=== PATIENT | male | born 1990 | race Caucasian/White ===

== ENCOUNTER 2019-03-30 09:20 | Inpatient (IN) | payer OTHER ==
[2019-03-30 12:46] VITALS: BMI 27.0
--- NOTE | 2019-03-30 14:36 | HP ---
"COWS - Scale Resting Pulse: 1= [place] 81-100 Sweatin= Chills/Flushing Restless Observation: 1= Difficult to Sit Still Pupil Size: 1= Pupils >than Normal Bone or Joint Aches: 1= Mild Discomfort Runny Nose/ Eye Tearin= None GI Upset > 30mins: 1= Stomach Cramp Tremor Observation: 1= Tremor [place], Not Seen Yawning Observation: 0= None Anxiety or Irritability: 2=Irritable/Anxious Goose Flesh Skin: 0=Smooth Skin COWS Score: 9 CIWA Score - Admission Criteria OASAS Guidelines: Admission for Medically Managed Detox: Requires at least one of the followin. CIWA greater than 12 2. Seizures within the past 24 hours 3. Delirium tremens within the past 24 hours 4. Hallucinations within the past 24 hours 5. Acute intervention needed for co occurring medical disorder 6. Acute intervention needed for co occurring psychiatric disorder 7. Severe withdrawal that cannot be handled at a lower level of care (continued vomiting, continued diarrhea, abnormal vital signs) requiring intravenous medication and/or fluids 8. Admitting History and Physical - Smoking History Smoking history: Current every day smoker Have you smoked in the past 12 months: No Aproximately how many cigarettes per day: 10 Admission ROS [facility] Allergies/Adverse Reactions: Allergies Allergy/AdvReac Type Severity Reaction Status Date / Time No Known Allergies Allergy Verified 03/30/19 12:47 History of Present Illness: 28 y.o. male requesting detox from heroin , first age of use 17 had rx for Percocet after hand frx , gradually increased use of Percocet , switched to heroin since age 19 denies iv use , denies OD , does not have Narcan @ home . latest heroin use Wednesday per pt , buprenorophine 5 am today . Went to Methadone clinic [facility] this morning and was referred to this facility for detox prior to entering Methadone clinic program. Per pt test results from utox not available @ [facility] until Wednesday thus pt was not accepted into the program for immediate dosing, pt reports he has been selling his Suboxone rx in order to fund his heroin use , keeps a few strips and takes pieces of it tostop withdrawal symptoms . Average daily use of heroin 1-1.5 bundles/day . Prior detox 2 years ago , has been in [facility] since without significant periods of sobriety . cocaine use : states in the past 1 gr every 2 days , latest use 3-4 weeks ago . crack cocaine 1 gr , latest use 3 weeks ago etoh - denies denies other illicits has rx Valium for anxiety . consent signed for prescriber notification . pmhx ; denies pshx : left hand psych ; anxiety , depression, denies SI / Hi shx : unemployed .l This report was requested by: Carla Mcarthur | Reference #: [id number] Others' Prescriptions Patient Name: Cheo Flores Date: 1990 Address: [address] [place] [address] Sex: Male Rx Written Rx Dispensed Drug Quantity Days Supply Prescriber Name 03/14/2019 03/14/2019 buprenorphine-naloxone 12-3 mg sl film 30 30 Shay Villa MD 03/14/2019 03/14/2019 diazepam 5 mg tablet 20 10 Shay Villa MD 02/10/2019 02/10/2019 diazepam 5 mg tablet 20 10 Shay Villa MD 02/10/2019 02/10/2019 buprenorphine-naloxone 12-3 mg sl film 30 30 Shay Villa MD 01/13/2019 01/13/2019 diazepam 5 mg tablet 20 10 Shay Villa MD 01/13/2019 01/13/2019 buprenorphine-naloxone 12-3 mg sl film 30 30 Shay Villa MD 12/15/2018 12/15/2018 diazepam 5 mg tablet 20 10 Shay Villa MD 12/15/2018 12/15/2018 buprenorphine-naloxone 12-3 mg sl film 30 30 Shay Villa MD 11/16/2018 11/16/2018 diazepam 5 mg tablet 20 10 Shay Villa MD 11/16/2018 11/16/2018 buprenorphine-naloxone 12-3 mg sl film 30 30 Shay Villa MD 10/14/2018 10/16/2018 buprenorphine-naloxone 12-3 mg sl film 30 30 Shay Villa MD 10/14/2018 10/14/2018 diazepam 5 mg tablet 20 10 Shay Villa MD 09/13/2018 09/15/2018 buprenorphine-naloxone 12-3 mg sl film 30 30 Shay Villa MD 09/13/2018 09/13/2018 diazepam 5 mg tablet 20 10 Shay Villa MD 08/18/2018 08/18/2018 buprenorphine-naloxone 12-3 mg sl film 30 30 Shay Villa MD Patient Name: Cheo Flores Date: 1990 Address: [address] [place] [address] Sex: Male Rx Written Rx Dispensed Drug Quantity Days Supply Prescriber Name 08/17/2018 08/17/2018 diazepam 5 mg tablet 20 10 Sahy Villa MD 07/20/2018 07/21/2018 buprenorphine-naloxone 12-3 mg sl film 30 30 Shay Villa MD 07/20/2018 07/20/2018 diazepam 5 mg tablet 20 10 Shay Villa MD 06/22/2018 06/22/2018 diazepam 5 mg tablet 20 10 Shay Villa MD 06/22/2018 06/22/2018 suboxone 12 mg-3 mg sl film 30 30 Shay Villa MD 05/18/2018 05/23/2018 suboxone 12 mg-3 mg sl film 30 30 Shay Villa MD 05/18/2018 05/18/2018 diazepam 5 mg tablet 20 10 Shay Villa MD 04/20/2018 04/23/2018 suboxone 12 mg-3 mg sl film 30 30 Shay Villa MD 04/20/2018 04/20/2018 diazepam 5 mg tablet 20 10 Shay Villa MD Exam Limitations: Clinical Condition - Ebola screening Have you traveled outside of the country in the last 21 days: No Have you had contact with anyone from an Ebola affected area: No - Review of Systems Constitutional: Loss of Appetite EENT: reports: Other (contacts- myopia , denies dysphagia) Respiratory: reports: No Symptoms reported Cardiac: reports: No Symptoms Reported GI: reports: Constipated : reports: No Symptoms Reported Musculoskeletal: reports: Back Pain, Muscle Pain (body aches) Integumentary: reports: No Symptoms Reported Neuro: reports: No Symptoms reported Endocrine: reports: No Symptoms Reported Hematology: reports: No Symptoms Reported Psychiatric: reports: Orientated x3, Agitated, Anxious Patient History - Patient Medical History Hx Asthma: No Hx Chronic Obstructive Pulmonary Disease (COPD): No Hx Cardiac Disorders: No Hx Hypertension: No Hx Seizures: No Hx Diabetes: No Hx Gastrointestinal Disorders: No Hx Genitourinary Disorders: No Hx Sexually Transmitted Disorders: No Hx Renal Disease (ESRD): No Hx Depression: Yes Hx Suicide Attempt: No Hx Schizophrenia: No - Patient Surgical History Past Surgical History: Yes Hx Orthopedic Surgery: Yes (L hand sx for fx at age 15 yrs old.) - PPD History Previous Implant?: Yes Documented Results: Negative w/o proof Implanted On Prior [facility] Admission?: No - Smoking Cessation Smoking history: Current every day smoker Have you smoked in the past 12 months: No Aproximately how many cigarettes per day: 10 Hx Chewing Tobacco Use: No Initiated information on smoking cessation: Yes 'Breaking Loose' booklet given: 03/30/19 - Substances abused Heroin Substance route: Inhalation Frequency: Daily Amount used: 10 bags Age of first use: 19 Date of last use: 03/26/19 Diazepam Substance route: Oral Frequency: Daily Amount used: 10-15mg Age of first use: 17 Date of last use: 03/30/19 Buprenorphine Substance route: Oral Frequency: 1-2 times per week Amount used: 1/4 of 12mg strip Age of first use: 23 Date of last use: 03/30/19 Admission Physical Exam S - Vital Signs Vital Signs: Vital Signs - 24 hr 03/30/19 12:41 Temperature 97.9 F Pulse Rate 87 Respiratory 18 Rate Blood Pressure 136/81 - Physical General Appearance: Yes: Disheveled, Mild Distress, Moderate Distress, Anxious HEENTM: Yes: EOMI, Hearing grossly Normal, Normocephalic, Normal Voice Respiratory: Yes: Chest Non-Tender, Lungs Clear, Normal Breath Sounds, No Respiratory Distress, No Accessory Muscle Use Neck: Yes: No masses,lesions,Nodules, Trachea in good position Cardiology: Yes: Regular Rhythm, Regular Rate, S1, S2 Abdominal: Yes: Non Tender, Soft Musculoskeletal: Yes: Gait Steady, Back pain Extremities: Yes: Normal Inspection, Normal Range of Motion, Non-Tender Neurological: Yes: Fully Oriented, Alert, Motor Strength 5/5, Depressed Affect Integumentary: Yes: Warm - Diagnostic (1) Opioid dependence Current Visit: Yes Status: Chronic Qualifiers: Substance use status: uncomplicated Qualified Code(s): F11.20 - Opioid dependence, uncomplicated (2) Sedative dependence with current use Current Visit: Yes Status: Acute (3) Cocaine abuse, episodic use Current Visit: Yes Status: Chronic (4) Nicotine dependence Current Visit: Yes Status: Chronic Qualifiers: Nicotine product type: cigarettes Breathalyzer - Breathalyzer Breathalyzer: 0 Urine Drug Screen - Test Device Lot number: [id number] Expiration date: 10/05/20 - Control Is test valid?: Yes - Results Drug screen NEGATIVE: No Urine drug screen results: MOP-Opiates, BZO-Benzodiazepines, BUP-Suboxone Inpatient Rehab Admission - Rehab Decision to Admit Inpatient rehab admission?: No"
[2019-03-30] MEDS ORDERED: MAGNESIUM CITRATE 300 ML BOTTLE PO PRN (14:51)
[2019-03-30] MEDS ORDERED: MAG HYDROX/AL HYDROX/SIMETH 30 ML UNIT-DOSE CUP PO PRN (14:51)
[2019-03-30] MEDS ORDERED: ACETAMINOPHEN 325 MG TABLET (FP) PO PRN ×2 (14:51)
[2019-03-30] MEDS ORDERED: MAGNESIUM HYDROX 2400MG/30ML ORAL SUSPENSION 30 ML CUP PO PRN (14:51)
[2019-03-30] MEDS ORDERED: IBUPROFEN 400 MG TABLET (FP) PO PRN (14:51)
[2019-03-30] MEDS ORDERED: MELATONIN 5 MG TABLETS PO PRN (14:51)
[2019-03-30] MEDS ORDERED: MENTHOL/PHENOL 1 EACH UD MM PRN (14:51)
[2019-03-30] MEDS ORDERED: BISMUTH SUBSALICYLATE 524 MG/30 ML UD PO PRN (14:51)
[2019-03-30] MEDS: diazePAM 5 MG TABLET PO SCH ×2 (15:56→22:10)
[2019-03-30] MEDS: cloNIDine HCL 0.1 MG TABLET PO PRN (17:00)
[2019-03-30] MEDS: THIAMINE HCL 100 MG TABLET (FP) PO SCH (22:10)
[2019-03-30] MEDS: hydrOXYzine PAMOATE 25 MG CAPSULE (FP) PO PRN (22:10)
[2019-03-30] MEDS: METHOCARBAMOL 500 MG TABLET PO PRN (22:11)
[2019-03-31] MEDS: diazePAM 5 MG TABLET PO SCH ×3 (06:00→21:59)
[2019-03-31 09:49] LABS: HEMATOCRIT 43.5 % (35.4-49); HEMOGLOBIN 14.7 GM/dL (11.7-16.9); MCH 30.5 pg (25.7-33.7); MCHC 33.8 g/dl (32.0-35.9); MEAN CELL VOLUME 90.2 fl (80-96); MEAN PLT VOLUME 8.4 fl (7.5-11.1); PLATELET COUNT 285 K/MM3 (134-434); RBC 4.82 M/mm3 (4.00-5.60); RDW 12.7 % (11.9-15.9); WHITE BLOOD COUNT 8.4 K/mm3 (4.0-10.0)
[2019-03-31] MEDS ORDERED: METHADONE HCL 10 MG TABLET (FOR DETOX USE ONLY) PO ONE (10:00)
[2019-03-31 10:01] LABS: BILIRUBIN,TOTAL 0.3 mg/dL (0.2-1); BLOOD UREA NITROGEN 11.9 mg/dL (7-18); CALCIUM 9.3 mg/dL (8.5-10.1); CREATININE 0.9 mg/dL (0.55-1.3); POTASSIUM 4.2 mmol/L (3.5-5.1); TOT PROT 7.1 g/dl (6.4-8.2)
[2019-03-31] MEDS: PRENATAL VITAMINS W/ FOLIC ACID TABLET (FP) PO SCH (10:09)
[2019-03-31] MEDS: diazePAM 5 MG TABLET PO PRN ×2 (10:11→17:57)
[2019-03-31] MEDS: METHOCARBAMOL 500 MG TABLET PO PRN (10:12)
--- NOTE | 2019-03-31 10:28 | PN ---
[facility] COWS - Scale Resting Pulse: 0= [place] 80 or Below Sweatin= Chills/Flushing Restless Observation: 1= Difficult to Sit Still Pupil Size: 2= Moderately Dilated Bone or Joint Aches: 2= Severe Diffuse Aches Runny Nose/ Eye Tearin= None GI Upset > 30mins: 3= Vomiting/Diarrhea Tremor Observation of Outstretched Hands: 1= Tremor [place], Not Seen Yawning Observation: 0= None Anxiety or Irritability: 2=Irritable/Anxious Goose Flesh Skin: 3=Piloerection (COWS performed ~9 am today) COWS Score: 15 S Progress Note (SOAP) Subjective: Feeling withdrawal, would like to start methadone. Room mate snores loudly, asking for room change Objective: 03/31/19 10:34 Gnl: ESTEBANWN, withdrawal symptoms noted MS: awake, alert, normal language function Ambulating in the hallway Assessment: 03/31/19 10:35 1. Opiod withdrawal Plan: 1. Opiod withdrawal protocal, start Methadone today 2. consider room change
[2019-03-31] MEDS: hydrOXYzine PAMOATE 25 MG CAPSULE (FP) PO PRN (12:34)
--- NOTE | 2019-03-31 13:34 | PN ---
S Progress Note Note: pt states I need to be at a methadone program for treatment after detox and i need my dose reduced. Pt was made aware of taper and in agreement of modified dose of methadone and day of discharge.
--- NOTE | 2019-03-31 13:37 | CONSULT ---
[facility] Psychiatric Consult - Data Date of interview: 03/31/19 Admission source: [facility] Identifying data: Mr Flores is a 28 years old single male, unemployed with no source of income, living with family seeking detox treatment for opioid, cocaine and benzodiazepine Substance Abuse History: Reports history of heroin, crack cocaine and valium use. Refer to addiction counselor's summary for further information Medical History: Significant for history of fracture of left hand. Patient is on Suboxone 3 mg/day from private physician. Smokes 10 cigarettes daily Psychiatric History: Reports that his first psychiatric contact was at age 20. He was diagnosed with depression/anxiety and Social Anxiey Disorder and started on psychotropic medications. Since then he has been prescribed Zoloft, Xanax, Klonopin and most recently Vistari and Gabapentin while admitted to inpatient rehab at [facility] a year ago. Reports that he has not received any psychiatric treatment since discharge from the rehab. Denies previous psychiatric hospitalization or suicidal adeations. At present, reports feeling depressed, anxious and sleeping poorly. Requests to be ordered Gabapentin, Vistaril for anxiety and Seroquel for sleep Physical/Sexual Abuse/Trauma History: Denies history of abuse as a child or DV relationship as an adult Mental Status Exam - Mental Status Exam Alert and Oriented to: Time, Place, Person Patient Appearance: Well Groomed Mood: Depressed, Anxious Affect: Appropriate Patient Behavior: Cooperative Speech Pattern: Clear Voice Loudness: Normal Thought Process: Intact, Goal Oriented Thought Disorder: Not Present Hallucinations: Denies Suicidal Ideation: Denies Homicidal Ideation: Denies Insight/Judgement: Poor Sleep: Poorly Appetite: Fair Muscle strength/Tone: Normal Gait/Station: Normal Psychiatric Findings - Problem List ([place] 1, 2,3) (1) Substance induced mood disorder Current Visit: Yes Status: Acute (2) Substance-induced sleep disorder Current Visit: Yes Status: Acute (3) Uncomplicated opioid dependence Current Visit: Yes Status: Acute (4) Sedative dependence with current use Current Visit: Yes Status: Acute (5) Cocaine abuse, episodic use Current Visit: Yes Status: Acute (6) Nicotine dependence Current Visit: Yes Status: Acute Qualifiers: Nicotine product type: cigarettes (7) Nicotine dependence Current Visit: Yes Status: Chronic - Initial Treatment Plan Initial Treatment Plan: 1) Start Gabapentin 300 mg po BID, Vistaril 50 mg poQ 4hrs prn for anxiety and Belsomra 10 mg po HS prn for insomnia. 2) Continue inpatient detoxification
[2019-03-31] MEDS ORDERED: GABAPENTIN 300 MG CAPSULE PO SCH (13:45)
--- NOTE | 2019-03-31 13:46 | EKG ---
Test Reason : Blood Pressure : / mmHG Vent. Rate : 062 BPM Atrial Rate : 062 BPM P-R Int : 108 ms QRS Dur : 102 ms QT Int : 442 ms P-R-T Axes : 070 066 043 degrees QTc Int : 448 ms SINUS RHYTHM WITH SINUS ARRHYTHMIA WITH SHORT LA NO PREVIOUS ECGS AVAILABLE Confirmed by RACHEL BRODERICK MD ([id number]) on 03/31/2019 1:45:47 PM Referred By: Confirmed By:RACHEL BRODERICK MD
[2019-03-31] MEDS: NICOTINE POLACRILEX 2 MG GUM BUC PRN ×2 (14:10→18:54)
[2019-03-31] MEDS: cloNIDine HCL 0.1 MG TABLET PO PRN (15:27)
[2019-03-31] MEDS: hydrOXYzine PAMOATE 50 MG CAPSULE (FP) PO PRN (17:58)
[2019-03-31] MEDS: THIAMINE HCL 100 MG TABLET (FP) PO SCH (21:59)
[2019-03-31] MEDS: GABAPENTIN 100 MG CAPSULE PO SCH (21:59)
[2019-03-31] MEDS: METHOCARBAMOL 500 MG TABLET PO SCH (21:59)
[2019-03-31] MEDS: SUVOREXANT 10 MG TABLET PO PRN (22:00)
[2019-04-01] MEDS: diazePAM 5 MG TABLET PO SCH ×2 (06:24→17:24)
[2019-04-01] MEDS ORDERED: METHADONE HCL 10 MG TABLET (FOR DETOX USE ONLY) PO ONE (10:00)
[2019-04-01] MEDS ORDERED: METHADONE (DETOX) 20 MG, METHADONE (DETOX) 5 MG PO ONE (10:00)
[2019-04-01] MEDS: GABAPENTIN 100 MG CAPSULE PO SCH ×2 (10:13→22:08)
[2019-04-01] MEDS: PRENATAL VITAMINS W/ FOLIC ACID TABLET (FP) PO SCH (10:13)
[2019-04-01] MEDS: hydrOXYzine PAMOATE 50 MG CAPSULE (FP) PO PRN (10:15)
[2019-04-01] MEDS: METHOCARBAMOL 500 MG TABLET PO SCH ×2 (10:15→22:08)
[2019-04-01] MEDS: diazePAM 5 MG TABLET PO PRN ×2 (11:12→15:31)
--- NOTE | 2019-04-01 14:27 | PN ---
[facility] COWS - Scale Resting Pulse: 0= [place] 80 or Below Sweatin= Chills/Flushing Restless Observation: 1= Difficult to Sit Still Pupil Size: 0= Normal to Room Light Bone or Joint Aches: 2= Severe Diffuse Aches Runny Nose/ Eye Tearin= Nasal Congestion GI Upset > 30mins: 0= None Tremor Observation of Outstretched Hands: 0= None Yawning Observation: 1= 1-2x During Session Anxiety or Irritability: 2=Irritable/Anxious Goose Flesh Skin: 3=Piloerection COWS Score: 11 BHS Progress Note (SOAP) Subjective: Chills, Sweating, Body Aches, Anxious, Restless. Objective: PATIENT A & O X 3, OBSERVED AMBULATING ON DETOX UNIT UNASSISTED. IN NO ACUTE DISTRESS. 04/01/19 14:29 Vital Signs Temperature 97.0 F L 04/01/19 10:00 Pulse Rate 61 04/01/19 10:00 Respiratory Rate 18 04/01/19 10:00 Blood Pressure 112/66 04/01/19 10:00 O2 Sat by Pulse Oximetry (%) Laboratory Tests 03/31/19 03/31/19 03/31/19 07:30 07:30 07:30 WBC 8.4 RBC 4.82 Hgb 14.7 Hct 43.5 MCV 90.2 MCH 30.5 MCHC 33.8 RDW 12.7 Plt Count 285 MPV 8.4 Sodium 142 Potassium 4.2 Chloride 106 Carbon Dioxide 31 Anion Gap 5 L BUN 11.9 Creatinine 0.9 Est GFR (CKD-EPI)AfAm 133.30 Est GFR (CKD-EPI)NonAf 115.01 Random Glucose 91 Calcium 9.3 Total Bilirubin 0.3 AST 13 L ALT 35 Alkaline Phosphatase 91 Total Protein 7.1 Albumin 4.0 RPR Titer Nonreactive LABS NOTED. Assessment: 04/01/19 14:29 WITHDRAWAL SYMPTOMS. Plan: CONTINUE DETOX.
[2019-04-01] MEDS: NICOTINE POLACRILEX 2 MG GUM BUC PRN (17:35)
[2019-04-01] MEDS: cloNIDine HCL 0.1 MG TABLET PO PRN (19:40)
[2019-04-01] MEDS: THIAMINE HCL 100 MG TABLET (FP) PO SCH (22:08)
[2019-04-01] MEDS: SUVOREXANT 10 MG TABLET PO PRN (22:10)
[2019-04-02] MEDS ORDERED: diazePAM 5 MG TABLET PO ONE (06:00)
[2019-04-02] MEDS ORDERED: METHADONE HCL 10 MG TABLET (FOR DETOX USE ONLY) PO ONE ×2 (10:00)
[2019-04-02] MEDS: METHOCARBAMOL 500 MG TABLET PO SCH ×2 (10:09→22:55)
[2019-04-02] MEDS: GABAPENTIN 100 MG CAPSULE PO SCH ×2 (10:09→21:59)
[2019-04-02] MEDS: PRENATAL VITAMINS W/ FOLIC ACID TABLET (FP) PO SCH (10:10)
[2019-04-02] MEDS: diazePAM 5 MG TABLET PO PRN ×2 (10:12→14:41)
[2019-04-02] MEDS: cloNIDine HCL 0.1 MG TABLET PO PRN ×2 (11:16→16:41)
[2019-04-02] MEDS: hydrOXYzine PAMOATE 50 MG CAPSULE (FP) PO PRN ×3 (11:17→22:00)
--- NOTE | 2019-04-02 11:59 | PN ---
[facility] CIWA - CIWA Score Nausea/Vomitin-No Nausea/No Vomiting Muscle Tremors: None Anxiety: 2 Agitation: 2 Paroxysmal Sweats: 2 Orientation: 0-Oriented Tacttile Disturbances: 0-None Auditory Disturbances: 0-None Visual Disturbances: 0-None Headache: 0-None Present CIWA-Ar Total Score: 6 S COWS - Scale Resting Pulse: 0= [place] 80 or Below Sweatin= Chills/Flushing Restless Observation: 0= Sits Still Pupil Size: 0= Normal to Room Light Bone or Joint Aches: 1= Mild Discomfort Runny Nose/ Eye Tearin= None GI Upset > 30mins: 1= Stomach Cramp Tremor Observation of Outstretched Hands: 0= None Yawning Observation: 1= 1-2x During Session Anxiety or Irritability: 2=Irritable/Anxious Goose Flesh Skin: 0=Smooth Skin COWS Score: 6 S Progress Note (SOAP) Subjective: Chills, body ache. Patient stated that he is for discharge tomorrow and requested to leave by 6:30am so that he can get to his methadone program by 7: 30am. Objective: 04/02/19 11:55 Last Vital Signs Temp Pulse Resp BP Pulse Ox 97.3 F L 64 17 119/65 04/02/19 09:50 04/02/19 09:50 04/02/19 09:50 04/02/19 09:50 Laboratory Tests 03/31/19 03/31/19 03/31/19 07:30 07:30 07:30 WBC 8.4 RBC 4.82 Hgb 14.7 Hct 43.5 MCV 90.2 MCH 30.5 MCHC 33.8 RDW 12.7 Plt Count 285 MPV 8.4 Sodium 142 Potassium 4.2 Chloride 106 Carbon Dioxide 31 Anion Gap 5 L BUN 11.9 Creatinine 0.9 Est GFR (CKD-EPI)AfAm 133.30 Est GFR (CKD-EPI)NonAf 115.01 Random Glucose 91 Calcium 9.3 Total Bilirubin 0.3 AST 13 L ALT 35 Alkaline Phosphatase 91 Total Protein 7.1 Albumin 4.0 RPR Titer Nonreactive Labs reviewed Assessment: 04/02/19 11:56 Withdrawal sxs Plan: Continue detox Encouraged PO water intake Patient scheduled for discharge tomorrow, requested to leave by 6:30 am so that he can get to his [facility] Program in [place] by 7:30 am.
[2019-04-02] MEDS: NICOTINE POLACRILEX 2 MG GUM BUC PRN (14:42)
[2019-04-02] MEDS: THIAMINE HCL 100 MG TABLET (FP) PO SCH (21:59)
[2019-04-02] MEDS: SUVOREXANT 10 MG TABLET PO PRN (22:01)
[2019-04-03] MEDS ORDERED: METHADONE HCL 10 MG TABLET (FOR DETOX USE ONLY) PO ONE (06:00)
[2019-04-03 07:04] VITALS: BP 134/75; PULSE 85; TEMP 97.7
[2019-04-03] MEDS ORDERED: METHADONE (DETOX) 10 MG, METHADONE (DETOX) 5 MG PO ONE (10:00)
[2019-04-04] MEDS ORDERED: METHADONE HCL 10 MG TABLET (FOR DETOX USE ONLY) PO ONE (10:00)
[2019-04-05] MEDS ORDERED: METHADONE HCL 5 MG TABLET (FOR DETOX USE ONLY) PO ONE (06:00)
== END 2019-04-03 06:45 | disposition home or self-care (01) | DRG 773 ==
LOC: YASAS 09:20 → Y3N 15:07 → Y6N 15:08
PROVIDERS: ADMIT Allergy & Immunology; ATTEND Allergy & Immunology
PROC: HZ2ZZZZ Detoxification Services for Substance Abuse Treatment (ICD-10-PCS; principal; 2019-03-30)
DX: F11.23 Opioid dependence with withdrawal (principal); F10.230 Alcohol dependence with withdrawal, uncomplicated; F14.10 Cocaine abuse, uncomplicated; F17.210 Nicotine dependence, cigarettes, uncomplicated; F19.24 Other psychoactive substance dependence with psychoactive substance-induced mood disorder; F19.282 Other psychoactive substance dependence with psychoactive substance-induced sleep disorder
CPT/HCPCS: 36415; 80053; 85027; 86593; 93005; 93010; J0735